=== PATIENT | male | born 1985 | race Caucasian/White ===

== ENCOUNTER 2024-11-09 11:00 | Emergency (ER) | payer OTHER ==
--- NOTE | 2024-11-09 11:26 | ED ---
Upper Extremity HPI - General Stated Complaint: R hand injury Time Seen by Provider: 11/09/24 11:24 Source: patient, RN notes reviewed Mode of arrival: ambulatory Limitations: no limitations - History of Present Illness Initial Comments: 39-year-old male presented to ER for evaluation of right thumb injury. Patient presents from [facility]. He is currently residing there for drug rehabilitation. Patient reports he was playing volleyball and his right thumb accidentally got bent backwards when attempting to hit the ball. Patient reports pain and swelling to base of right thumb. Patient requesting a splint upon evaluation. He has not taken anything for pain at this time denies any paresthesias or other injuries. - Related Data Allergies Allergy/AdvReac Type Severity Reaction Status Date / Time No Known Allergies Allergy Verified 11/09/24 11:33 Review of Systems ROS Statement: Those systems with pertinent positive or pertinent negative responses have been documented in the HPI. ROS Other: All systems not noted in ROS Statement are negative. General Exam Limitations: no limitations General appearance: alert, in no apparent distress Respiratory exam: Present: normal lung sounds bilaterally. Absent: respiratory distress, wheezes, rales, rhonchi, stridor Cardiovascular Exam: Present: regular rate, normal rhythm, normal heart sounds. Absent: systolic murmur, diastolic murmur, rubs, gallop, clicks Extremities exam: Present: tenderness (Thenar eminence ), normal capillary refill (2+ right radial), other (Contusion and edema right thenar eminence. Limited active ROM. No right anatomical snuffbox tenderness) Neurological exam: Present: alert, oriented X3, CN II-XII intact Skin exam: Present: warm, dry, intact, normal color. Absent: rash Course Vital Signs 11/09/24 11/09/24 11:27 12:49 Temperature 98.1 F 98.0 F Pulse Rate 72 76 Respiratory 18 18 Rate Blood Pressure 108/75 111/71 O2 Sat by Pulse 98 98 Oximetry Procedures - Orthopedic Splinting/Casting Injury #1 Side: right Upper Extremity Injury Location: hand Upper Extremity Immobilizer: thumb spica Medical Decision Making - Medical Decision Making Was pt. sent in by a medical professional or institution (, PA, HEALTH PLAN MANAGER, urgent care, hospital, or intermediate...) When possible be specific @ -Patient sent from [facility] for evaluation of right hand injury. Did you speak to anyone other than the patient for history (EMS, parent, family, police, friend...)? What history was obtained from this source @ -No Did you review nursing and triage notes (agree or disagree)? Why? @ -I reviewed and agree with nursing and triage notes Were old charts reviewed (outside hosp., previous admission, EMS record, old EKG, old radiological studies, urgent care reports/EKG's, intermediate records)? Report findings @ -No old charts were reviewed Differential Diagnosis (chest pain, altered mental status, abdominal pain women, abdominal pain men, vaginal bleeding, weakness, fever, dyspnea, syncope, headache, dizziness, GI bleed, back pain, seizure, CVA, palpatations, mental health, musculoskeletal)? @ -Differential Musculoskeletal: Muscular strain, contusion, ligament sprain, fracture, arthritis, septic arthritis, bursitis, cellulitis, muscle spasm, nerve compression, DVT, arterial occlusion, herpes zoster, electrolyte abnormality, tumor.... This is not meant to be in all inclusive list EKG interpreted by me (3pts min.). @ -None done X-rays interpreted by me (1pt min.). @ -Right hand x-ray interpreted me negative for acute fractures or dislocations. CT interpreted by me (1pt min.). @ -None done U/S interpreted by me (1pt. min.). @ -None done What testing was considered but not performed or refused? (CT, X-rays, U/S, labs)? Why? @ -None What meds were considered but not given or refused? Why? @ -None Did you discuss the management of the patient with other professionals (professionals i.e. , PA, HEALTH PLAN MANAGER, lab, RT, psych nurse, social media executive, hand i blocker, teacher, traffic division commanding officer, field case manager)? Give summary @ -No Was smoking cessation discussed for >3mins.? @ -No Was critical care preformed (if so, how long)? @ -No Were there social determinants of health that impacted care today? How? (Homelessness, low income, unemployed, alcoholism, drug addiction, transportation, low edu. Level, literacy, decrease access to med. care, retirement, rehab)? @ -Patient currently residing at [facility] for rehabilitation. Was there de-escalation of care discussed even if they declined (Discuss DNR or withdrawal of care, Hospice)? DNR status @ -No What co-morbidities impacted this encounter? (DM, HTN, Smoking, COPD, CAD, C ancer, CVA, ARF, Chemo, Hep., AIDS, mental health diagnosis, sleep apnea, morbid obesity)? @ -None Was patient admitted / discharged? Hospital course, mention meds given and route, prescriptions, significant lab abnormalities, going to OR and other pertinent info. @ -Discharged. 39-year-old male presented the ER for evaluation of right thumb injury. Vitals stable. Exam remarkable for edema and tenderness to right thenar eminence with overlying contusion. Tenderness to right 1st MCP joint. Patient is neurovascularly intact. No anatomical snuffbox tenderness. X-rays right hand negative for acute fractures or dislocations. Patient provided with IM Toradol for pain control. Given significant pain to the thenar eminence and right first MCP joint patient placed in a thumb spica splint, for support. Advised him to follow-up closely with orthopedics. Return parameters discussed. Patient discharged in stable condition back to [facility]. Patient verbally expressed understanding agree with care plan. Case discussed with ED attending, Dr. Vidal. Undiagnosed new problem with uncertain prognosis? @ -No Drug Therapy requiring intensive monitoring for toxicity (Heparin, Nitro, I nsulin, Cardizem)? @ -No Were any procedures done? @ -Yes, splint Diagnosis/symptom? @ -Hand injury Acute, or Chronic, or Acute on Chronic? @ -Acute Uncomplicated (without systemic symptoms) or Complicated (systemic symptoms)? @ -Uncomplicated Side effects of treatment? @ -No Exacerbation, Progression, or Severe Exacerbation? @ -No Poses a threat to life or bodily function? How? (Chest pain, [place], NE, pneumonia, PE, COPD, DKA, ARF, appy, cholecystitis, CVA, Diverticulitis, Homicidal, Suicidal, threat to staff... and all critical care pts) @ -No - Radiology Data Radiology results: report reviewed, image reviewed Disposition Clinical Impression: Hand injury Disposition: HOME SELF-CARE Condition: Stable Instructions (If sedation given, give patient instructions): Hand Sprain (ED) Additional Instructions: Follow-up with PCP. You may take [id number] Profen and Tylenol for pain control. Return to the ER for any new or worsening concerns. Is patient prescribed a controlled substance at d/c from ED?: No Referrals: None,Stated [Primary Care Provider] - 1-2 days Time of Disposition: 12:37
[2024-11-09 11:33] VITALS: RESP 18
--- NOTE | 2024-11-09 11:51 | XR ---
EXAMINATION TYPE: XR hand complete 3 views RT DATE OF EXAM: 11/09/2024 11:40 AM COMPARISON: None CLINICAL INDICATION: Male, 39 years old with history of thumb injury; PHH, pain FINDINGS: Old healed boxer's fracture deformity fifth metacarpal neck. No acute fracture, subluxation, dislocat ion is seen. IMPRESSION: 1. No acute osseous abnormality seen. 2. Old healed boxer's fracture deformity. [facility], Workstation: [facility], 11/09/2024 11:48 AM
[2024-11-09] MEDS: KETOROLAC 15 MG/ML 1 ML VIAL IM STA (11:59)
[2024-11-09 12:51] VITALS: BP 111/71; PULSE 76; TEMP 98
== END 2024-11-09 12:49 | disposition home or self-care (01) ==
LOC: EC 11:00
DX: S69.91XA Unspecified injury of right wrist, hand and finger(s), initial encounter (principal); W21.06XA Struck by volleyball, initial encounter; Y93.68 Activity, volleyball (beach) (court)
CPT/HCPCS: 99283; 96372; 29125; 73130; J1885